=== PATIENT | female | born 1970 | race Caucasian/White ===

== ENCOUNTER 2020-02-20 11:06 | Emergency (ER) | payer OTHER ==
[~2020-02-20] VITALS: Ht 172.7 cm; Wt 113.6 kg
[2020-02-20 11:23] LABS: HEMATOCRIT 40.7 % (37.0-47.0); HEMOGLOBIN 12.9 g/dl (12.5-16.0); MEAN CELL VOLUME 93 fl (80.0-100.0); MEAN CORPUSCULAR HEMOGLOBIN 29 pg (27.0-31.0); MEAN CORPUSCULAR HGB CONC 32 g/dl (33.0-37.0); MEAN PLATELET VOLUME 9.6 fl (7.4-10.4); PLATELET COUNT 338 K/mm3 (130-400); REDCELL DISTRIBUTION WIDTH-CV 12.4 % (11.5-14.5)
[2020-02-20 11:33] LABS: ALBUMIN 3.9 gm/dL (3.5-5.0); BILIRUBIN,TOTAL 0.5 mg/dL (0.0-1.0); CALCIUM 9.1 mg/dL (8.4-10.2); CREATININE, serum 0.94 (0.52-1.25); MAGNESIUM 2.6 mg/dL (1.6-2.3); PHOSPHOROUS 8.3 mg/dL (2.5-4.5); TOTAL PROTEIN 7.1 gm/dL (6.4-8.2)
[2020-02-20 11:35] LABS: POTASSIUM 2.3 mmol/L (3.4-5.0)
[2020-02-20 11:43] LABS: TROPONIN-I 0.024 ng/mL (0.000-0.035)
[2020-02-20 12:17] LABS: PH 6 (5-8); SQUAMOUS EPITHELIAL 0-2 /hpf; URINE APPEARANCE Hazy; URINE BACTERIA Rare /hpf; URINE BILIRUBIN Negative (NEGATIVE); URINE BLOOD 1+ (NEGATIVE); URINE COLOR Yellow; URINE GLUCOSE 1+ (NEGATIVE); URINE KETONE Negative (NEGATIVE); URINE LEUKOCYTE ESTERASE Negative (NEGATIVE); URINE NITRATE Negative (NEGATIVE); URINE PROTEIN(semi-quant) 3+ (NEGATIVE); URINE UROBILINOGEN Negative (NEGATIVE)
[2020-02-20 12:32] VITALS: BP 140/86; PULSE 99; TEMP 98.3
[2020-02-20 12:42] LABS: COLLECTION METHOD CATHETER
[2020-02-20 12:53] LABS: BAND 11 % (0-10); EOSINOPHIL 3 % (0-4); LYMPHOCYTE 62 % (20.0-51.0); METAMYELOCYTE 1 % (0-0); MYELOCYTE 1 % (0-0); NEUTROPHILS 16 % (42.0-75.2)
[2020-02-20 12:54] LABS: PLATELET ESTIMATE NORMAL (NORMAL)
[2020-02-20] MEDS ORDERED: LIPITOR 40MG TA40 MG PO (13:47)
[2020-02-20] MEDS ORDERED: SYNTHROID 0.10.15 MG PO (13:48)
[2020-02-20] MEDS ORDERED: MAG-OX 400400 MG/TAB PO (13:48)
[2020-02-20] MEDS ORDERED: LASIX 20MG TABL20 MG PO (13:49)
[2020-02-20] MEDS ORDERED: PRINIVIL5 MG PO (13:49)
[2020-02-20] MEDS ORDERED: TOPROL XL 50MG50 MG PO (13:49)
--- NOTE | 2020-02-20 15:03 | NUR ---
ROSA called to code: ROSA called to code approx 10:55 a.m. Rosa gathered information from House, EMS, and Spouse. Patient female born 09/09/1971 was seeing PCP Elissa Briggs in [place] and Dr. Suzy Irwin Handy [facility] in [facility]. Patient resides in [facility] with and son both named Lv Ko. Patient is reported to be on medications for her heart, K, Blood, and Cholesterol. Husbands phone number is . Patient is insured with [employer] [facility]. Patient was slotted to transfer.
[2020-02-20 17:58] LABS: ARTERIAL BLD GAS O2 SATURATION 95.2 % (92-100); ARTERIAL BLD GAS TCO2 CT 21.6; ARTERIAL BLOOD GAS HCO3 20.4 meq/L (22-26); ARTERIAL BLOOD GAS PCO2 39.3 mmHg (35-45); ARTERIAL BLOOD GAS PO2 85.1 mmHg (80-100); ARTERIAL BLOOD GAS pH 7.33 (7.35-7.45)
== END 2020-02-20 12:32 | disposition short-term general hospital (02) ==
LOC: COL.ER 11:06 → EDBD 11:07 → COL.ER 12:32
PROVIDERS: Emergency Medicine
DX: I46.2 Cardiac arrest due to underlying cardiac condition (principal); I47.2 Ventricular tachycardia; I49.01 Ventricular fibrillation; E87.6 Hypokalemia; Z95.9 Presence of cardiac and vascular implant and graft, unspecified
CPT/HCPCS: J0282; J0330; J2250; J2543; J3475; J3480; J7030; J7060